=== PATIENT | male | born 1975 | race Caucasian/White ===

== ENCOUNTER 2024-04-27 15:58 | Emergency (ER) | payer OTHER, SELFPAY ==
[2024-04-27 16:01] VITALS: BP 154/110; PULSE 88; RESP 18; TEMP 36.3; O2SAT 98; BMI 27.1
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
--- NOTE | 2024-04-27 19:42 | CT_ITS ---
STUDY: CT CERVICAL SPINE WITHOUT CONTRAST REASON FOR EXAM: Male, 48 years old. Injury/Pain RADIATION DOSAGE (If Supplied By Facility): CTDIvol = ( 24.04 ) mGy, DLP = ( 475.82 ) mGycm TECHNIQUE: High resolution transaxial imaging was performed without contrast material. Sagittal and coronal images were reconstructed. Individualized dose optimization techniques were used for this CT. The protocol utilizes one or more of the following dose reduction techniques: automated exposure control, adjustment of mA and/or kV according to patient size,and/or use of iterative reconstruction technique. COMPARISON: None FINDINGS: Normal craniovertebral junction. Normal anterior atlantoaxial articulation. Normal odontoid process. Mild scoliosis/torticollis. There is reversal of the normal cervical lordosis. Normal vertebral bodies and posterior osseous elements. C2-3: Normal endplates. Normal disc height and morphology. Normal central canal and intervertebral neuroforamina. C3-4: Normal endplates. Normal disc height and morphology. Normal central canal and intervertebral neuroforamina. C4-5: Normal endplates. Normal disc height and morphology. Normal central canal and intervertebral neuroforamina. C5-6: Spondylitic endplates. Normal disc height and morphology. Normal central canal and intervertebral neuroforamina. C6-7: Spondylitic endplates. Normal disc height and morphology. Normal central canal and intervertebral neuroforamina. C7-T1: Normal endplates. Normal disc height and morphology. Normal central canal and intervertebral neuroforamina. Normal visualized soft tissue structures. CT/Spine Cervical without Contras IMPRESSION: No fracture. Electronically Signed: Evgeny Hendricks MD at 20:18 EDT ,
--- NOTE | 2024-04-27 19:42 | CT_ITS ---
We are attempting to reach an attending provider to discuss findings. An addendum with communication details will be sent when the communication is complete. STUDY: CT BRAIN WITHOUT CONTRAST REASON FOR EXAM: Male, 48 years old. Injury/Pain RADIATION DOSAGE (If Supplied By Facility): CTDIvol = ( 44.99 ) mGy, DLP = ( 863.60 ) mGycm TECHNIQUE: Transaxial CT imaging of the brain was performed without administration of intravenous contrast material. Individualized dose optimization techniques were used for this CT. The protocol utilizes one or more of the following dose reduction techniques: automated exposure control, adjustment of mA and/or kV according to patient size,and/or use of iterative reconstruction technique. COMPARISON: No relevant priors. FINDINGS: Normal soft tissue structures. Normal calvarium. Intracranial atherosclerosis. Prominent dense right temporal cortical vein. Normal size ventricles and extra-axial spaces for the patient''s age. Normal white matter tracts of the cerebral hemispheres. Normal basal ganglia and thalami. Normal brainstem. Normal cerebellum. There is no intracranial hemorrhage. There are no findings of an acute ischemic infarction. Normal visualized paranasal sinuses. CT/Brain/Head without Contrast IMPRESSION: Possible cortical vein thrombosis on the right. Recommend MRI with and without IV contrast Electronically Signed: Evgeny Hendricks MD at 20:11 EDT ,
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
[2024-04-27 20:32] VITALS: BP 165/106; PULSE 70; RESP 18; O2SAT 97
[2024-04-27 23:39] VITALS: BP 158/97; PULSE 82; RESP 16; TEMP 36.9; O2SAT 99
== END 2024-04-28 03:39 | disposition short-term general hospital (02) ==
PROVIDERS: Emergency Provider Emergency Medicine; PCP Internal Medicine; Visit Provider Emergency Medicine
DX: S16.1XXA Strain of muscle, fascia and tendon at neck level, initial encounter (principal); Y92.410 Unspecified street and highway as the place of occurrence of the external cause; V43.52XA Car driver injured in collision with other type car in traffic accident, initial encounter; W22.10XA Striking against or struck by unspecified automobile airbag, initial encounter; Z98.52 Vasectomy status
CPT/HCPCS: 70450; 71101; 72125; 99284

== ENCOUNTER 2024-08-01 13:00 | Outpatient (RCR) | payer OTHER, SELFPAY ==
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
--- NOTE | 2024-09-27 10:51 | HP.PT.NRP ---
Patient Information Patient Information: MAXIMUS ALAMO was seen in my office for initial evaluation on 06/14/24. The following Plan of Care was established for this patient: POC Established Initial Frequency: 2x /Week Initial Duration: 4-6 Weeks Anticipated Interventions Patient/Client Instruction: Educate patient on: Condition and Plan of Care For the Purpose of:: To improve self management Therapeutic Exercise to Include: Strength training, Flexibilty training and Scapular Strength/Stabilization For the Purpose of:: To decrease pain, To increase ROM and To improve muscle performance and motor function Manual Therapy Techniques to Include: Passive ROM and Soft tissue mobilization For the Purpose of:: To decrease pain and To increase ROM Last Seen Last Seen: This patient was last seen in our office . Pertinent comments regarding their Physical therapy will appear below: Pt has not returned in greater than 30 days and is discharged at this time. At this point I will be discontinuing this patient from physical therapy. I would be happy to see this patient again in the future if found appropriate by the physician. Thank you! Drake Lowe, PT, ATC Balance/Gait/Functional tests Balance/Special Test Scores Oswestry Neck Score: 13
== END 2024-08-01 19:00 | disposition home or self-care (01) ==
LOC: PT 13:00
PROVIDERS: PCP Internal Medicine; Referring Provider Internal Medicine; Visit Provider Internal Medicine
DX: M54.50 Low back pain, unspecified (principal); M54.2 Cervicalgia; M62.838 Other muscle spasm
CPT/HCPCS: 97035; 97110; 97140; 97161